=== PATIENT | male | born 1970 | race Caucasian/White ===

== ENCOUNTER → 2024-05-29 15:40 | Emergency (ER) | payer SELFPAY ==
[2024-05-29 15:43] VITALS: BP 141/98
--- NOTE | 2024-05-29 17:46 | ED.GENMED ---
History of Present Illness
<Doroteo Godinez PA-C - Last Filed: 05/29/24 22:49>
General
Chief Complaint: Facial Problem
Time Seen by Provider: 05/29/24 17:28
History of Present Illness
History of Present Illness:
52 male presents to the emergency department due to persistent left cheek red discomfort for the past 4 to 5 days. He cephalexin, and improvements for the past 3 days. He was seen by his primary care physician in urgent care and encouraged to come
the emergency department for possible IV antibiotics today. He denies any fevers or chills. Denies any traumatic wounds to the face, no dental pain or difficulty chewing
Past History
<Doroteo Godinez PA-C - Last Filed: 05/29/24 22:49>
Past History
ED Past Medical History: None
ED Past Surgical History: None
Social History
Tobacco: Non-smoker
Alcohol: None
Review of Systems
<Doroteo Godinez PA-C - Last Filed: 05/29/24 22:49>
Review of Systems
Allergies reviewed?: Yes
All Other Systems: ROS reviewed and negative except as documented in HPI and ROS
Phy Exam
<YEMI Ardon Last Filed: 05/29/24 22:49>
Physical Exam
Physical Exam:
GEN: Well appearing, NAD, WDWN
HEENT: Oral mucosa moist, no scleral icterus. 3 x 2 cm indurated erythematous patch to the left maxillary face, no periorbital edema, no photophobia, no obvious dental caries or dental abscesses, no trismus
Cardiac: Regular rate
Lung: No respiratory distress, no tachypnea
MSK: No gross deformity or injuries
Skin: Good color, no pallor or jaundice, no rashes
Neuro: AO x3, moves all extremities freely
Psych: Calm, cooperative
Course
<Doroteo Godinez PA-C - Last Filed: 05/29/24 22:49>
Orders/Labs/Results
Orders:
Orders
05/29/24 17:45
Sulfamethox./Trimethoprim Ds [Bactrim Ds 800 mg/160 mg] 1 tablet PO NOW STA
05/29/24 15:46
05/29/24 15:46
Vital Signs
Initial and Last Documented VS:
Initial Vital Signs
Temp Pulse Resp BP Pulse Ox
98.6 F 94 18 141/98 99
05/29/24 15:43 05/29/24 15:43 05/29/24 15:43 05/29/24 15:43 05/29/24 15:43
Last Documented Vital Signs
Temp Pulse Resp BP Pulse Ox
98.6 F 94 18 141/98 99
05/29/24 15:43 05/29/24 15:43 05/29/24 15:43 05/29/24 15:43 05/29/24 15:43
<Lucía Potter DO - Last Filed: 05/29/24 18:08>
Orders/Labs/Results
Orders:
Orders
05/29/24 17:45
Sulfamethox./Trimethoprim Ds [Bactrim Ds 800 mg/160 mg] 1 tablet PO NOW STA
05/29/24 15:46
05/29/24 15:46
Vital Signs
Initial and Last Documented VS:
Initial Vital Signs
Temp Pulse Resp BP Pulse Ox
98.6 F 94 18 141/98 99
05/29/24 15:43 05/29/24 15:43 05/29/24 15:43 05/29/24 15:43 05/29/24 15:43
Last Documented Vital Signs
Temp Pulse Resp BP Pulse Ox
98.6 F 94 18 141/98 99
05/29/24 15:43 05/29/24 15:43 05/29/24 15:43 05/29/24 15:43 05/29/24 15:43
<Doroteo Godinez PA-C - Last Filed: 05/29/24 22:49>
MDM/Problems Addressed
MDM/Problems Addressed:
Patient clinically well-appearing, afebrile, no clinical signs of invasive disease or orbital involvement. Will switch antibiotics to Bactrim and topical mupirocin, do not see indication for IV antibiotics at this time
<Doroteo Godinez PA-C - Last Filed: 05/29/24 22:49>
*Critical Care Note
Total Time (30-74mins, 75-104mins- exclusive of procedures): Not Applicable
ED Attending Note
<Doroteo Godinez PA-C - Last Filed: 05/29/24 22:49>
-
Portions of this chart may have been created with voice recognition software.� Occasional wrong word or��sound alike� substitutions may have occurred due to the inherent limitations of voice recognition software.
<Lucía Potter DO - Last Filed: 05/29/24 18:08>
ED Attending Note
Patient seen and examined by attending physician: Yes
I performed the substantive portion of visit, reviewed & personally made and approve the management plan that is documented in note by myself or ALEKSANDRA.: Yes
I performed a history and physical exam of patient and discussed management with resident, I reviewed resident's note and agree with documented findings and plan of care.: Yes
ED Attending Note:
53-year-old male presenting to the emergency department for area of swelling and erythema to the left cheek area of the face. Patient reports he is unclear how it started, has been taking antibiotics for the past 3 days, doxycycline and cephalexin.
He does not feel like the area is getting any better. He went to his primary care doctor told him to come to the hospital for further evaluation. Denies any visual issues, however reports at nighttime the swelling progressed up to the lower lid.
Denies any fever. Denies any weakness or numbness to his extremities. Vital signs are normal.
On exam patient is well-appearing, nontoxic. Patient does have a half dollar sized area of erythema and induration lateral to the nose on the left side. No fluctuance. Scabbing at the middle. No ocular compromise. No orbital swelling.
Extraocular movements intact. Without concern for preseptal or orbital cellulitis. Area appears consistent with likely MRSA infection. Feel patient would benefit from change of antibiotics. Will start patient on Bactrim. Advised to stop the
doxycycline and continue the cephalexin. Advised continued outpatient follow-up for reassessment. Strict return precautions communicated and patient verbalized understanding
Discharge Plan
Departure
Patient Disposition: Home (Routine Discharge)
Date of Disposition: 05/29/24
Time of Disposition: 18:17
Patient with high blood pressure during this ER visit?: No
Discharge Problem:
Impetigo
Instructions: Impetigo ED
Prescriptions:
New
sulfamethoxazole-trimethoprim [Bactrim DS] 800-160 mg tablet
1 tab PO BID Qty: 14 0RF
mupirocin 2 % ointment
1 applic topical TID 7 Days Qty: 22 0RF
No Action
acetaminophen [acetaminophen] 325 mg tablet
650 mg PO Q4HPRN PRN (Reason: mild pain) Qty: 1 0RF
ibuprofen 200 mg tablet
400 - 600 mg PO Q6HPRN PRN (Reason: moderate pain) Qty: 1 0RF
oxycodone 5 mg tablet
5 mg PO Q4HPRN PRN (Reason: breakthrough/severe pain) Qty: 10 0RF
ondansetron [ondansetron] 4 mg tablet,disintegrating
4 mg PO Q8HPRN PRN (Reason: nausea/vomiting) Qty: 10 0RF
oxycodone 5 mg tablet
5 mg PO Q4HPRN PRN (Reason: breakthrough/severe pain) Qty: 7 0RF
oxycodone 5 mg tablet
5 mg PO Q8H PRN (Reason: Pain) Qty: 10 0RF
ondansetron 4 mg tablet,disintegrating
4 mg PO TIDPRN PRN (Reason: nausea/vomiting) Qty: 10 0RF
Referrals:
Jose Laguna, DO [Family Provider] -
Activity Restrictions/Additional Instructions:
Stop the other antibiotics and start the Bactrim and topical ointment provided today
Interventions
Interventions:
*Risk Screen - Suicide Last Done: 05/29/24 15:43
*General Assessment Last Done: 05/29/24 15:43
*Neglect/Abuse Screening Last Done: 05/29/24 15:43
ED- Fall Risk Assessment Last Done: 05/29/24 18:37
*ED COVID-19 Vaccine History Last Done: 05/29/24 15:43
*Nursing Disposition Last Done: 05/29/24 18:37
ED- Neurological Assessment Last Done: 05/29/24 18:36
ED-Skin Assessment Last Done: 05/29/24 18:36
Discharge Date and Time
Print Language: BRUNEIAN
[2024-05-29] MEDS: BACTRIM DS 800 MG/160 MG 1 TABLET PO (18:02)
== END | disposition home or self-care (01) ==
LOC: EMR 15:40
PROVIDERS: EMERGENCY PHYSICIAN Student in an Organized Health Care Education/Training Program; FAMILY PHYSICIAN Family Medicine
DX: L01.00 Impetigo, unspecified (principal); R22.0 Localized swelling, mass and lump, head
CPT/HCPCS: 99283